=== PATIENT | female | born 1970 | race Caucasian/White ===

== ENCOUNTER 2020-10-24 17:29 | Emergency (ER) | payer MEDICAID ==
[~2020-10-24] VITALS: Ht 152.4 cm; Wt 70.5 kg
[2020-10-24] MEDS ORDERED: FLUO10CA24 PO (17:35)
[2020-10-24] MEDS ORDERED: OMEP10 PO (17:35)
[2020-10-24] MEDS ORDERED: GABA-1181 PO (17:35)
[2020-10-24] MEDS ORDERED: LOSA25TA21 PO (17:35)
[2020-10-24 18:45] LABS: BASOPHILS % (AUTO) 0.4 % (0.0-2.0); EOSINOPHILS % (AUTO) 1.1 % (1.0-6.0); HEMATOCRIT 37.1 % (36-46); HEMOGLOBIN 12.4 g/dL (12.0-16.0); LYMPHOCYTES # (AUTO) 2.1 K/uL (1.0-4.8); LYMPHOCYTES % (AUTO) 34.3 % (22.0-44.0); MEAN CORPUSCULAR HEMOGLOBIN 31.2 pg (26.0-34.0); MEAN CORPUSCULAR HGB CONC 33.5 G/dL (31.0-37.0); MEAN CORPUSCULAR VOLUME 93 fL (80-100); MONOCYTES # (AUTO) 0.4 K/uL (0.1-1.0); MONOCYTES % (AUTO) 7.2 % (2.0-9.0); NEUTROPHILS # (AUTO) 3.5 K/uL (1.8-7.7); PLATELET COUNT (AUTO) 212 K/uL (150-450); RED BLOOD CELL COUNT(AUTO) 3.99 MIL/uL (4.00-5.20); RED CELL DISTRIBUTION WIDTH 13.1 % (11.5-14.5)
[2020-10-24 18:54] LABS: ANION GAP 7 mmol/L (8-16); CARBON DIOXIDE 28 mmol/L (22-29); CHLORIDE 105 mmol/L (98-107); CREATININE 0.84 mg/dL (0.60-1.30); GLOMERULAR FILTR. RATE CALC > 60 mL/min (>60); GLUCOSE,RANDOM 90 mg/dL (70-110); POTASSIUM 4.2 mmol/L (3.5-5.1); SODIUM SERUM 140 mmol/L (136-145); UREA NITROGEN, BLOOD 19 mg/dL (7-18)
[2020-10-24 18:58] LABS: APPEARANCE,URINE CLOUDY (CLEAR); BILIRUBIN,URINE NEGATIVE (NEGATIVE); GLUCOSE, URINE (UA) NEGATIVE (NEGATIVE); KETONES,URINE TRACE mg/dL (NEGATIVE); LEUKOCYTE ESTERASE ,URINE SMALL (NEGATIVE); NITRATE,URINE NEGATIVE (NEGATIVE); OCCULT BLOOD,URINE NEGATIVE (NEGATIVE); PROTEIN,URINE NEGATIVE (NEGATIVE); UROBILINOGEN,URINE 0.2 mg/dL (<=1.0)
[2020-10-24 19:05] LABS: ALANINE AMINOTRANSFERASE 33 U/L (12-78); ALBUMIN 3.5 g/dL (3.4-5.0); ALKALINE PHOSPHATASE 124 U/L (46-116); ASPARTATE AMINOTRANSFERASE 25 U/L (15-37); BILIRUBIN,TOTAL 0.3 mg/dL (0.1-1.0); HCG,QUANTITATIVE < 1 mIU/mL (0-6); LIPASE 183 U/L (73-393); TOTAL PROTEIN, SERUM 8.1 g/dL (6.4-8.2)
[2020-10-24 19:23] LABS: BACTERIA,URINE Few /HPF (None Seen); RBC,URINE 0-2 /HPF (0-2); SQUAMOUS EPITHELIAL CELL,UR Many /LPF (None Seen)
[2020-10-24] MEDS ORDERED: OMEP20 PO (19:37)
[2020-10-24] MEDS ORDERED: FLUO20CA36 PO (19:37)
[2020-10-24] MEDS ORDERED: PHENAZOPYRIDINE HCL 100 MG TABLET PO ONE (19:45)
[2020-10-24] MEDS ORDERED: PB/HYOSCY/ATR/SCOP/LIDO/MAALOX 55 ML BOTTLE PO ONE (19:45)
[2020-10-24] MEDS ORDERED: SULFAMETHOX/TRIMETH DS 800-160 MG/TABLET PO ONE (19:45)
[2020-10-24 20:06] VITALS: BP 115/71
== END 2020-10-24 20:07 | disposition home or self-care (01) ==
LOC: EMS 17:32
DX: N39.0 Urinary tract infection, site not specified (principal)
CPT/HCPCS: 80053; 81001; 83690; 84702; 85025; 87086; 99284

== ENCOUNTER 2021-05-23 17:39 | Emergency (ER) | payer MEDICAID ==
[~2021-05-23] VITALS: Ht 152.4 cm; Wt 74.5 kg
[~2021-05-23 17:39] MED LIST: FLUO20CA36 PO; GABA-1181 PO; LOSA-381 PO; OMEP20 PO
[2021-05-23 20:15] VITALS: BP 141/79
[2021-05-23 20:26] LABS: APPEARANCE,URINE CLEAR (CLEAR); BILIRUBIN,URINE NEGATIVE (NEGATIVE); GLUCOSE, URINE (UA) NEGATIVE (NEGATIVE); KETONES,URINE NEGATIVE (NEGATIVE); LEUKOCYTE ESTERASE ,URINE NEGATIVE (NEGATIVE); NITRATE,URINE NEGATIVE (NEGATIVE); OCCULT BLOOD,URINE NEGATIVE (NEGATIVE); PROTEIN,URINE NEGATIVE (NEGATIVE); UROBILINOGEN,URINE 0.2 mg/dL (<=1.0)
[2021-05-23] MEDS ORDERED: IBUP-1554 PO (22:03)
[2021-05-23] MEDS ORDERED: BACL10TA PO (22:03)
[2021-05-23] MEDS ORDERED: ACET-2080 PO (22:03)
[2021-05-23] MEDS ORDERED: BACLOFEN 10 MG TABLET PO ONE (22:15)
[2021-05-23] MEDS ORDERED: KETOROLAC TROMETHAMINE 60 MG/2 ML VIAL IM ONE (22:15)
== END 2021-05-23 23:15 | disposition home or self-care (01) ==
LOC: EMS 17:50
DX: M54.50 Low back pain, unspecified (principal); E11.9 Type 2 diabetes mellitus without complications; F32.9 Major depressive disorder, single episode, unspecified
CPT/HCPCS: 81003; 96372; 99283; J1885